=== PATIENT | male | born 1950 | race Asian ===

== ENCOUNTER 2022-08-07 02:49 | Inpatient (IN) | payer MEDICAID, MEDICARE ==
[~2022-08-07] VITALS: Ht 167.6 cm; Wt 76.2 kg
[2022-08-07] VITALS (9 sets, daily range): BP systolic 83–135; BP diastolic 50–97
--- NOTE | 2022-08-07 02:51 | NUR ---
YO ALS TO BED #7
[2022-08-07] MEDS ORDERED: TRANEXAMIC ACID 1,000 MG in NACL 0.9% 50 ML IV STA (02:56)
[2022-08-07] MEDS ORDERED: OCTREOTIDE ACETATE 1.25 MG in NACL 0.9% 250 ML IV SCH ×2 (03:00→10:00)
[2022-08-07] MEDS ORDERED: PANTOPRAZOLE 80 MG in NACL 0.9% 100 ML IVP ONE (03:00)
--- NOTE | 2022-08-07 03:00 | NUR ---
PT MANUELA'Kinsey IN BED 7, PT YO FROM HOME WITH C/O VOMITING OF BLOOD TODAY, INITIALLY HYPOTENSIVE 59/40, HE WAS GIVEN NS 300MLS,BP 114/74, BS 150 MG/DL, NSR, SAO2 100% KNA
[2022-08-07] MEDS ORDERED: PANTOPRAZOLE 40 MG INJ VIAL ONE (03:10)
[2022-08-07] MEDS ORDERED: TRANEXAMIC ACID 1,000 MG/10 ML VIAL ONE (03:10)
[2022-08-07] MEDS ORDERED: OCTREOTIDE ACETATE 1000 MCG/5 ML VIAL ONE (03:18)
[2022-08-07] MEDS ORDERED: OCTREOTIDE ACETATE 1.25 MG in NACL 0.9% 250 ML IV ONE (03:20)
--- NOTE | 2022-08-07 03:35 | NUR ---
SECOND IV STARTED, 20G KURTIST AC.
[2022-08-07 04:10] LABS: BASOPHILS % (AUTO) 0.3 % (0.0-2.0); EOSINOPHILS % (AUTO) 0.3 % (0.0-4.0); HEMATOCRIT 22.8 % (36-52); HEMOGLOBIN 7.7 g/dL (12.0-18.0); LYMPHOCYTES # (AUTO) 0.3 K/uL (2.0-11.5); LYMPHOCYTES % (AUTO) 4.7 % (20.5-51.1); MEAN CORPUSCULAR HEMOGLOBIN 30 pg (27-31); MEAN CORPUSCULAR HGB CONC 34 g/dL (33-37); MEAN CORPUSCULAR VOLUME 89.3 fL (80-94); MONOCYTES # (AUTO) 0.5 K/uL (0.8-1.0); MONOCYTES % (AUTO) 7.4 % (1.7-9.3); NEUTROPHILS # (AUTO) 6.2 K/uL (1.8-7.7); PLATELET COUNT (AUTO) 115 K/uL (140-450); RED BLOOD CELL COUNT(AUTO) 2.56 MIL/uL (4.20-6.10); RED CELL DISTRIBUTION WIDTH 15.1 % (11.6-13.7); WHITE BLOOD COUNT (AUTO) 7.2 K/uL (4.8-10.8)
[2022-08-07 04:23] LABS: NEUTROPHILS % (AUTO) 87.3 % (42.2-75.2)
[2022-08-07 04:24] LABS: ALBUMIN 1.9 g/dL (3.4-5.0); ANION GAP 14.7 (8-16); ASPARTATE AMINOTRANSFERASE 54 U/L (15-37); CARBON DIOXIDE 23.2 mmol/L (21-32); CHLORIDE 108 mmol/L (98-107); CREATININE 1.4 mg/dL (0.6-1.3); GLUCOSE 134 mg/dL (74-106); POTASSIUM 4.9 mmol/L (3.5-5.1); SODIUM SERUM 141 mmol/L (136-145); TOTAL BILIRUBIN 0.5 mg/dL (0.0-1.0); UREA NITROGEN, BLOOD 49 mg/dL (7-18)
[2022-08-07 04:35] LABS: PROTHROMBIN TIME 12.8 secs (10.8-13.4)
--- NOTE | 2022-08-07 04:50 | NUR ---
PT TAKEN TO CT.
--- NOTE | 2022-08-07 05:16 | NUR ---
PT RETURNED FROM CT, WHILE RN HOOKED PT BACK UP TO THE IV PT BEGAN TO VOMIT UP BLOOD. APPROX 200 MLS WORTH
--- NOTE | 2022-08-07 05:30 | NUR ---
PT HAD LARGE AMOUNT HEMATEMESIS
[2022-08-07] MEDS ORDERED: NOREPINEPHRINE 4 MG in DEXTROSE 5% 250 ML IV ONE (05:45)
--- NOTE | 2022-08-07 05:49 | NUR ---
PRBC'S BEGUN AT THIS TIME
--- NOTE | 2022-08-07 05:58 | NUR ---
RT CALLED FOR INTUBATION
[2022-08-07] MEDS ORDERED: NOREPINEPHRINE 4 MG/4 ML VIAL IV ONE (06:01)
[2022-08-07] MEDS ORDERED: INTUBATION KIT MC ONE (06:02)
--- NOTE | 2022-08-07 06:05 | NUR ---
PT INTUBATED AND ATTACHED TO VENT. A/C 16 VT 450 PEEP 5 CM FIO2 100%. INTUBATED 7.5, 21CM TO TEETH
--- NOTE | 2022-08-07 06:23 | NUR ---
RN PLACED OG TUBE IN PT. PLACEMENT VERIFIED BY XRAY.
[2022-08-07] MEDS ORDERED: PROPOFOL 1000 MG/100 ML PREMIX 100 ML IV ONE ×3 (06:33→10:59)
--- NOTE | 2022-08-07 06:54 | NUR ---
SECOND UNIT OF PRBC'S HUNG AND STARTED.
--- NOTE | 2022-08-07 06:59 | NUR ---
PT IN BED INTUBATED, WTIH PROPOFOL, PRBC'S, SANDOSTATIN, LEVOPHED, PROTONIX ALL INFUSING. PT HAS A VASQUEZ IN PLACE, DRAINING, YELLOW COLORED URINE. OG TUBE IN PLACE. Addendum: 08/07/22 at 0703 by [email or web address] PT IN BED INTUBATED, WTIH PROPOFOL, PRBC'S, SANDOSTATIN, LEVOPHED, PROTONIX ALL INFUSING. PT HAS A VASQUEZ IN PLACE, DRAINING, YELLOW COLORED URINE. OG TUBE IN PLACE. PT ON PLANT INSPECTOR, NSR.
--- NOTE | 2022-08-07 07:22 | NUR ---
REPORT GIVEN TO HARESH GARCIA.
[2022-08-07] MEDS ORDERED: VASOPRESSIN 20 UNITS/ML VIAL ONE (07:28)
[2022-08-07] MEDS ORDERED: VASOPRESSIN 20 UNITS in NACL 0.9% 250 ML IV SCH (07:30)
--- NOTE | 2022-08-07 08:00 | NUR ---
received patient from AM shift. patient on vent with settings as ordered. Blood transfusion ongoing, BP was low 71/37. on levophed drip @ 8mcg/kg/min titrated per protocol, propofol @ 15 mcg titrated per protocol. started on vasopressin per protocol. BP increased to 147/78 after vasopressin started. Will titrate ordered drips per protocol. V/S stable at this time, will continue to monitor closely.
[2022-08-07] MEDS ORDERED: cefTRIAXone 1,000 MG VIAL ONE (08:30)
[2022-08-07] MEDS ORDERED: DEXMEDETOMIDINE HCL 400 MCG in NACL 0.9% 96 ML IV STA (08:31)
[2022-08-07] MEDS ORDERED: fentaNYL citrate 0.05 MG/ML VIAL ONE (09:03)
[2022-08-07] MEDS ORDERED: MIDAZOLAM 2 MG/2 ML VIAL ONE (09:03)
[2022-08-07] MEDS ORDERED: ONDANSETRON 4 MG/2 ML VIAL IM/IVP PRN (09:35)
[2022-08-07] MEDS: DEXT 5% /NACL 0.9% 1,000 ML IV SCH ×2 (09:35→17:00)
[2022-08-07] MEDS ORDERED: HYDROcodone/APAP 7.5/325 MG 1 TAB PO PRN (09:35)
[2022-08-07] MEDS ORDERED: guaiFENesin DM 200/20 MG-10 ML 10 ML UDC PO PRN (09:35)
[2022-08-07] MEDS ORDERED: ACETAMINOPHEN 325 MG TAB PO PRN (09:35)
[2022-08-07] MEDS ORDERED: ZOLPIDEM 5 MG TAB PO PRN (09:35)
[2022-08-07] MEDS ORDERED: DOCUSATE 100 MG/10 ML UDC PO PRN (09:45)
[2022-08-07] MEDS ORDERED: POTASSIUM CHLORIDE 20% 40 MEQ/15 ML UDC PO PRN (09:45)
--- NOTE | 2022-08-07 10:24 | NUR ---
OR TEAM AT BEDSIDE
--- NOTE | 2022-08-07 10:30 | NUR ---
Endoscopy started at the bedside by Dr. Corbett with OR team.
--- NOTE | 2022-08-07 10:50 | NUR ---
EGD procedure completed. V/S Stable.
[2022-08-07] MEDS: PROPOFOL 1000 MG/100 ML PREMIX 100 ML IV PRN ×2 (11:25→21:44)
[2022-08-07 11:33] LABS: PROTHROMBIN TIME 13.4 secs (10.8-13.4)
[2022-08-07] MEDS ORDERED: TENO300T7 PO (11:40)
[2022-08-07] MEDS ORDERED: OMEP40EC23 PO (11:40)
[2022-08-07 11:47] LABS: CHOL/HDL RATIO 3.9 (1-4.5); MAGNESIUM 1.8 mg/dL (1.8-2.4); THYROID STIMULATING HORMONE 0.87 uIU/mL (0.34-3.74)
[2022-08-07 11:50] LABS: BASOPHILS % (AUTO) 0.2 % (0.0-2.0); EOSINOPHILS % (AUTO) 0.1 % (0.0-4.0); HEMATOCRIT 36.6 % (36-52); HEMOGLOBIN 12.1 g/dL (12.0-18.0); LYMPHOCYTES # (AUTO) 0.7 K/uL (2.0-11.5); MEAN CORPUSCULAR HEMOGLOBIN 28 pg (27-31); MEAN CORPUSCULAR HGB CONC 33 g/dL (33-37); MEAN CORPUSCULAR VOLUME 85.7 fL (80-94); MONOCYTES # (AUTO) 1.9 K/uL (0.8-1.0); NEUTROPHILS # (AUTO) 9.7 K/uL (1.8-7.7); PLATELET COUNT (AUTO) 106 K/uL (140-450); RED BLOOD CELL COUNT(AUTO) 4.27 MIL/uL (4.20-6.10); RED CELL DISTRIBUTION WIDTH 17.7 % (11.6-13.7); WHITE BLOOD COUNT (AUTO) 12.3 K/uL (4.8-10.8)
[2022-08-07] MEDS ORDERED: DEXMEDETOMIDINE HCL 400 MCG in NACL 0.9% 96 ML IV PRN (12:00)
[2022-08-07 12:39] LABS: LYMPHOCYTES % (AUTO) 5.8 % (20.5-51.1); MONOCYTES % (AUTO) 15.5 % (1.7-9.3); NEUTROPHILS % (AUTO) 78.4 % (42.2-75.2)
--- NOTE | 2022-08-07 14:00 | NUR ---
PULMUNOLOGIST AT BEDSIDE TO EVALUATE THE PATIENT.
--- NOTE | 2022-08-07 15:04 | NUR ---
FAMILY AT BEDSIDE. PATIENT V/S REMAINS STABLE AT THIS TIME.
[2022-08-07] MEDS: NOREPINEPHRINE 8 MG in DEXTROSE 5% 250 ML IV PRN (16:38)
--- NOTE | 2022-08-07 16:55 | NUR ---
TRANSFERRED PT FROM ER TO ICU BED 5. CURRENT VENT SETTING ARE ACVC 450,F20, +5, 40%. VENT WHEELS ARE LOCKED, PLUGGED INTO RED OUTLET, AMBUBAG AT BEDSIDE, ALARMS ARE SET AND AUDIBLE. CLEAR/ DIMINISHED BREATH SOUNDS, SATURATION 100%. WILL CONTINUE TO MONITOR.
[2022-08-07] MEDS ORDERED: OCTREOTIDE ACETATE IV SCH (17:00)
[2022-08-07] MEDS ORDERED: NACL 0.9% IV SCH (17:00)
--- NOTE | 2022-08-07 17:11 | NUR ---
Patient will be admitted to care of DR. GARCES. Admited to ICU . Will go to room 5. Belongings list completed. Report to TORRIE GARCIA.
--- NOTE | 2022-08-07 17:50 | NUR ---
RECIEVED BEDSIDE REPORT FROM ER NURSE. PATIENT STABLE AT THIS TIME.
--- NOTE | 2022-08-07 19:26 | NUR ---
Assumed pt care bedside report recived from Daksha GARCIA, pt is sedated on PROPOFOL unable to follow command, intubated ETT to ventilator FIO2 45% rate 20 Peep 5 TV 450 tolerating well O2 96% oral care done airway suction via ETT, SR on the monitor blood pressure WNL ongoing Levophed drip NPO hydration with IV fluids, pt education on care plan no evidence of learning defer till family visit time, restraints applied for safety as pt attempted to pull ETT close monitoring and support at beside, will continue to monitor and treat as per care plan.
--- NOTE | 2022-08-07 19:30 | NUR ---
BEDSIDE REPORT GIVEN TO VALERIE GARCIA. PATIENT IS STABLE AT THIS TIME.
--- NOTE | 2022-08-07 20:45 | NUR ---
Propofol turned off for pt's neuro assessment,became drowsy as at this time pt's son visiting at the bedside pt follows command eyes open moves all extremities. Pt's son was able to serv as claim adjuster for the assessment, face time updates with pt's and other family members. Patient nods appropriately to anser questions and family wre glad and verbalized appreciation for the care and treatments pt is receiving at this hospital.
[2022-08-08] VITALS (32 sets, daily range): BP systolic 83–127; BP diastolic 55–86
[2022-08-08 01:17] LABS: BASOPHILS % (AUTO) 0.2 % (0.0-2.0); EOSINOPHILS # (AUTO) 0.2 K/uL (0-0.4); EOSINOPHILS % (AUTO) 1.9 % (0.0-4.0); HEMATOCRIT 31.2 % (36-52); HEMOGLOBIN 10.8 g/dL (12.0-18.0); LYMPHOCYTES # (AUTO) 0.4 K/uL (2.0-11.5); LYMPHOCYTES % (AUTO) 3.8 % (20.5-51.1); MEAN CORPUSCULAR HEMOGLOBIN 29 pg (27-31); MEAN CORPUSCULAR HGB CONC 34 g/dL (33-37); MEAN CORPUSCULAR VOLUME 84.8 fL (80-94); MONOCYTES # (AUTO) 1.2 K/uL (0.8-1.0); MONOCYTES % (AUTO) 11.4 % (1.7-9.3); NEUTROPHILS # (AUTO) 8.8 K/uL (1.8-7.7); NEUTROPHILS % (AUTO) 82.7 % (42.2-75.2); PLATELET COUNT (AUTO) 67 K/uL (140-450); RED BLOOD CELL COUNT(AUTO) 3.68 MIL/uL (4.20-6.10); RED CELL DISTRIBUTION WIDTH 18.5 % (11.6-13.7); WHITE BLOOD COUNT (AUTO) 10.6 K/uL (4.8-10.8)
[2022-08-08] MEDS: DEXT 5% /NACL 0.9% 1,000 ML IV SCH ×3 (03:22→10:30)
[2022-08-08 03:32] LABS: APPEARANCE,URINE CLEAR (CLEAR); BILIRUBIN,URINE NEGATIVE (NEGATIVE); BLOOD, URINE TRACE-I (NEGATIVE); COLOR,URINE YELLOW (YELLOW); LEUKOCYTE ESTERASE ,URINE TRACE (NEGATIVE); NITRITE, URINE POSITIVE (NEGATIVE); UGLUCOSE NEGATIVE (NEGATIVE)
[2022-08-08 03:36] LABS: RBC,URINE 11-20 (MOD) /HPF (0-5)
[2022-08-08 03:37] LABS: WBC,URINE 0-5 /HPF (0-5)
[2022-08-08 03:49] LABS: BARBITURATE, URINE NEGATIVE ng/ml (NEG <=200); BENZODIAZEPINE, URINE NEGATIVE ng/mL (NEG <=200); CANNABINOID, URINE NEGATIVE ng/mL (NEG <=50); COCAINE, URINE NEGATIVE ng/mL (NEG <=300); OPIATE, URINE NEGATIVE ng/mL (NEG <=2000); PHENCYCLIDINE SCREEN,URINE NEGATIVE ng/mL (NEG <=25)
[2022-08-08 04:21] LABS: ANION GAP 8.6 (8-16); CHLORIDE 115 mmol/L (98-107); CREATININE 1.1 mg/dL (0.6-1.3); GLUCOSE 149 mg/dL (74-106); POTASSIUM 4.6 mmol/L (3.5-5.1); SODIUM SERUM 142 mmol/L (136-145); UREA NITROGEN, BLOOD 40 mg/dL (7-18)
[2022-08-08 04:40] LABS: BASOPHILS # (AUTO) 0.1 K/uL (0.00-0.22); BASOPHILS % (AUTO) 0.5 % (0.0-2.0); EOSINOPHILS # (AUTO) 0.3 K/uL (0-0.4); EOSINOPHILS % (AUTO) 2.5 % (0.0-4.0); HEMATOCRIT 30.6 % (36-52); HEMOGLOBIN 10.6 g/dL (12.0-18.0); LYMPHOCYTES # (AUTO) 0.5 K/uL (2.0-11.5); LYMPHOCYTES % (AUTO) 4.4 % (20.5-51.1); MEAN CORPUSCULAR HEMOGLOBIN 29 pg (27-31); MEAN CORPUSCULAR HGB CONC 35 g/dL (33-37); MEAN CORPUSCULAR VOLUME 84.4 fL (80-94); MONOCYTES # (AUTO) 1.2 K/uL (0.8-1.0); MONOCYTES % (AUTO) 11.7 % (1.7-9.3); NEUTROPHILS # (AUTO) 8.6 K/uL (1.8-7.7); NEUTROPHILS % (AUTO) 80.9 % (42.2-75.2); PLATELET COUNT (AUTO) 85 K/uL (140-450); RED BLOOD CELL COUNT(AUTO) 3.62 MIL/uL (4.20-6.10); RED CELL DISTRIBUTION WIDTH 18.5 % (11.6-13.7); WHITE BLOOD COUNT (AUTO) 10.7 K/uL (4.8-10.8)
[2022-08-08] MEDS: PROPOFOL 1000 MG/100 ML PREMIX 100 ML IV PRN ×3 (05:48→22:56)
--- NOTE | 2022-08-08 07:22 | NUR ---
Bedside report given to Caterina GARCIA, as at this time pt's vitals signs stable no sign of distress restful in bed no changes in pt"s condition and care plan
--- NOTE | 2022-08-08 08:05 | NUR ---
received report from the night nurse, pt stable in vent, pt follow command, the drip is maintained.[email or web address]
[2022-08-08 08:09] LABS: T4 (THYROXINE) 4.8 ug/dL (4.5-12.0)
[2022-08-08] MEDS: PANTOPRAZOLE 40 MG INJ VIAL IVP SCH (09:09)
--- NOTE | 2022-08-08 09:10 | NUR ---
positioned the patient, the son in bed side, pt follow the command, and moves all extremities in soft restraints c/o pulling the lines.[email or web address]
--- NOTE | 2022-08-08 09:17 | NUR ---
PATIENT HAS BEEN SCREENED AND CATEGORIZED HIGH NUTRITION RISK. PATIENT WILL BE SEEN WITHIN 1-2 DAYS OF ADMISSION. [facility]NS REFERRAL RECEIVED FOR INTUBATED PATIENT ON 08/08/22. REVIEWED BY ROBERT MORIN RD
--- NOTE | 2022-08-08 11:42 | NUR ---
PT. WITH LOW SHANIQUE SCALE AT MODERATE TO HIGH RISK, CONTINUE TO FOLLOW PRESSURE INJURY PREVENTION INTERVENTIONS. -POSITIONING: TURN AND REPOSITION PATIENT Q 2H OR SOONER USE PILLOWS TO KEEP BONY PROMINENCES FROM DIRECT CONTACT WITH SURFACES USE REPOSITIONING WEDGES TO PROVIDE 30-DEGREE ANGLE FOR SIDE LYING POSITIONS OFFLOADING OR FOAM DRESSING TO ALL TUBING TO PREVENT MEDICAL DEVICES RELATED PRESSURE INJURY -RE-EVALUATING AND MANAGING INCONTINENCE MONITOR SKIN CONDITION DURING POSITION CHANGE DO NOT MASSAGE REDNESS, BONY PROMINENCES FREQUENT DANIEL-CARE AND PROVIDE BARRIER CREAMS PRN IF SOILING MOISTURE CONTROL BY OFFER BED DARNELL/URINAL /ABSORBENT PAD TO WICK AND HOLD MOISTURE KEEP SKIN DRY AND PROTECT FROM FRICTION -MANAGE FRICTION/SHEAR/MOBILITY KEEP HOB AT THE LOWEST LEVEL OF ELEVATION NO MORE THAN 30 DEGREE UNLESS OTHERWISE CONTRAINDICATED USE LIFT SHEET OR TRANSFER DEVICE TO MOVE PATIENT AND PREVENT LATERAL SHEER. PROTECT HEELS, ELBOWS BONY PROMINENCES WITH SKIN BERRIES OR FOAM DRESSING IF EXPOSED TO FRICTION OFFLOAD BILATERAL HEELS BY PLACING PILLOWS UNDER CALVES AT ALL TIMES, UNLESS OTHERWISE CONTRAINDICATED -PRESSURE REDISTRIBUTION SURFACE THERAPY HELENA ISOFLEX MATTRESS -NUTRITION: PLEASE FOLLOW RD RECOMMENDATIONS AND OFFER NUTRITION SUPPLEMENTS IF ORDERED. PLEASE CONTACT WOUND CARE NURSE FOR ANY QUESTION AND CHANGE OF WOUND CONDITION.
--- NOTE | 2022-08-08 12:09 | NUR ---
pt restless increased the propofol to 25mcg [email or web address]
--- NOTE | 2022-08-08 13:15 | NUR ---
INCREASED LEVOPHED AGAIN FOR LOW BP.[email or web address]
--- NOTE | 2022-08-08 14:44 | NUR ---
PT IS RESTING AFTER POSITIONING FOR COMFORT,BP 134/81, [email or web address]
--- NOTE | 2022-08-08 15:29 | NUR ---
PT HAS FAMILY MEMBERS AT BED SIDE, POSITIONED FOR COMFORT.[email or web address]
--- NOTE | 2022-08-08 15:57 | NUR ---
08/08/22 RD INITIAL ASSESSMENT COMPLETED PLEASE REFER TO NUTRITION ASSESSMENT UNDER CARE ACTIVITY FOR ESTIMATED NUTRITIONAL NEEDS. 1. MONITOR NPO STATUS 2. WHEN/IF MEDICALLY APPROPRIATE, RECOMMEND REGULAR DIET WITH TEXTURE MODIFICATION PER ST SWALLOW EVAL RECOMMENDATIONS. 3. WHEN/IF MEDICALLY APPROPRIATE TO START TF, RECOMMEND VITAL AF 1.2 AT GOAL RATE 65 ML/HR, FWF 150 ML Q6H TOLERATED OR PER MD -WITH CURRENT PROPOFOL RATE, PROVIDES 1560 ML TOTAL VOLUME, 2085 KCAL, 117 GM PROTEIN AND 1865 ML FREE WATER DAILY MEETING 96% ESTIMATED KCAL NEEDS AND 100% ESTIMATED PROTEIN NEEDS; ADEQUATE - START TF AT 1O ML/HR INCREASE BY 1O ML Q4H UNTIL GOAL IS REACHED TOLERATED 4. MONITOR GI SYMPTOMS, GASTRIC RESIDUALS AND NUTRITION RELATED LAB VALUES 5. CONSULT RD PRN 6. RD TO FOLLOW-UP 2-3 DAYS, HIGH RISK REVIEWED BY ROBERT MORIN RD
--- NOTE | 2022-08-08 17:19 | NUR ---
PT RESTING THE VENT SETTING DID NOT CHANGE, IV INFUSING ORDERED NO VISITOR AT BED SIDE.[email or web address]
[2022-08-08] MEDS: NOREPINEPHRINE 8 MG in DEXTROSE 5% 250 ML IV PRN (17:52)
--- NOTE | 2022-08-08 18:18 | NUR ---
PT RESTING THE IV MED AND FLUID MAINTAINED ORDERED,FIO2 25% WITH RATE OF 20 SETTING.THE VASQUEZ CATH IS DRAINING YELLOW CLEAR URINE,NO BM ON THIS SHIFT.[email or web address]
--- NOTE | 2022-08-08 19:18 | NUR ---
GAVE REPORT TO THE NIGHT NURSE.PT CONTINUE TO REST WITH DRIP INFUSING ORDERED.[email or web address]
--- NOTE | 2022-08-08 20:00 | NUR ---
Pt. was anxious and triggering vent , so up with Profopol up to 45 mcg/kg/min
--- NOTE | 2022-08-08 21:47 | NUR ---
at 2100 pt was triggering vent with high peak, suctioned endoctracheally obtaining a n old bloody freks and lavaged with cold N. saline
[2022-08-09] VITALS (28 sets, daily range): BP systolic 75–129; BP diastolic 55–78
[2022-08-09] MEDS: DEXT 5% /NACL 0.9% 1,000 ML IV SCH ×5 (00:57→20:41)
[2022-08-09] MEDS: PROPOFOL 1000 MG/100 ML PREMIX 100 ML IV PRN ×3 (04:57→20:31)
[2022-08-09 06:52] LABS: BASOPHILS # (AUTO) 0.1 K/uL (0.00-0.22); BASOPHILS % (AUTO) 0.8 % (0.0-2.0); EOSINOPHILS # (AUTO) 0.4 K/uL (0-0.4); EOSINOPHILS % (AUTO) 4.7 % (0.0-4.0); HEMATOCRIT 28.5 % (36-52); HEMOGLOBIN 9.8 g/dL (12.0-18.0); LYMPHOCYTES # (AUTO) 0.4 K/uL (2.0-11.5); LYMPHOCYTES % (AUTO) 4.4 % (20.5-51.1); MEAN CORPUSCULAR HEMOGLOBIN 29 pg (27-31); MEAN CORPUSCULAR HGB CONC 34 g/dL (33-37); MEAN CORPUSCULAR VOLUME 85.3 fL (80-94); MONOCYTES # (AUTO) 1.1 K/uL (0.8-1.0); MONOCYTES % (AUTO) 11.5 % (1.7-9.3); NEUTROPHILS # (AUTO) 7.3 K/uL (1.8-7.7); NEUTROPHILS % (AUTO) 78.6 % (42.2-75.2); PLATELET COUNT (AUTO) 86 K/uL (140-450); RED BLOOD CELL COUNT(AUTO) 3.34 MIL/uL (4.20-6.10); RED CELL DISTRIBUTION WIDTH 18.7 % (11.6-13.7); WHITE BLOOD COUNT (AUTO) 9.3 K/uL (4.8-10.8)
[2022-08-09 07:13] LABS: ANION GAP 9.2 (8-16); CARBON DIOXIDE 21.6 mmol/L (21-32); CHLORIDE 118 mmol/L (98-107); GLUCOSE 145 mg/dL (74-106); POTASSIUM 3.8 mmol/L (3.5-5.1); SODIUM SERUM 145 mmol/L (136-145); UREA NITROGEN, BLOOD 21 mg/dL (7-18)
--- NOTE | 2022-08-09 07:22 | NUR ---
RECEIVED REPORT FROM MAYNOR GARCIA. PATIENT IS STABLE AT THIS TIME. SEDATED ON PROPOFOL 40MCG/KG/MIN, LEVOPHED AT 5MCG/MIN, D5NS RUNNING AT 135ML/HR VIA SUBCLAVIAN TRIPLE LUMEN CATH. SUBCLAVIAN CENTRAL LINE APPEARS WNL, NO S/S OF INFECTION, DRESSING IS CDI. IV SITE TO LEFT AC FLUSHES. IV SITE TO R FA FLUSHES WELL, IV SITE TO THE RIGHT AC FLUSHES WELL. S1 AND S2 AUSCULTATED, CAP REFILL <3 SEC. PULSES +2 BUE/BLE. ETT TO VENT AT AC VC 25%, 450, 20, 5. LUNGS CLEAR WITH AUSCULTATION. ABD IS SOFT AND ROUND, NO TENDERNESS PALPATED. BOWEL SOUNDS HYPOACTIVE. NO BM AT THIS TIME. F/C TO GRAVITY DRAINING YELLOW URINE. ABLE TO MOVE EXTREMITIES. RESTRAINTS TO BUE, NO S/S OF INJURY. WILL CONTINUE TO MONITOR.
[2022-08-09] MEDS: PANTOPRAZOLE 40 MG INJ VIAL IVP SCH (08:15)
[2022-08-09] MEDS ORDERED: DEXMEDETOMIDINE HCL 400 MCG in NACL 0.9% 96 ML IV PRN (09:35)
--- NOTE | 2022-08-09 10:22 | NUR ---
DR. HERNANDEZ HERE TO SEE PATIENT. PER MD CONTINUE WITH SEDATION VACTION AND BEGIN CPAP TRIAL. RT NOTIFIED AT BS. PATIENT HAS BEEN TOLERATING DECREASE IN SEDATION SO FAR.
--- NOTE | 2022-08-09 13:05 | NUR ---
PATIENT CURRENTLY UNDERGOING CPAP TRIAL. PROPOFOL AND LEVOPHED ON HOLD CURRENTLY. BLOOD PRESSURE 106/65, HR 81. PATIENT'S SON AT BS. PATIENT FOLLOWS COMMANDS AND COMPREHEND'S SON AND NURSE WHEN SPOKEN TO. PERRLA 3MM. PATIENT IS RELAXING IN BED AT THIS TIME. NO SIGNS OF ACUTE DISTRESS WILL CONTINUE TO MONITOR.
--- NOTE | 2022-08-09 14:00 | NUR ---
CPAP TRIAL ENDED DT INCREASED RESPIRATORY RATE. RT AWARE. PATIENT PLACED BACK ON VENT SETTINGS 25% FIO2, 450, 22, 5. OXYGENATING AT 96%. PROPOFOL RESUMED PER PROTOCOL. WILL CONTINUE TO MONITOR. Addendum: 08/09/22 at 1652 by TORRIE DOW RN BP AND HR STABLE WITHOUT LEVOPHED DRIP.
--- NOTE | 2022-08-09 16:18 | NUR ---
DC PLANNING ADMITTED A 72 YEAR OLD PATIENT FOR GI BLEED AND HYPOVOLEMIC SHOCK.HAS HX OF LIVER CANCER UNDERGOING RADIATION THERAPY,COPD, HEPATITIS B CARRIER .HGB 7.7 ON ADMISSION. EMERGENCY BANDING WAS DONE.RECEIVED 3 UNITS OF BLOOD TRANSFUSION .LATEST HGB STABLE 9.8.INTUBATED AND FOR DAILY CPAP TRIALS. OFF SEDATION AND ANTIBIOTIC.GI,NEPRO ,PULMO FOLLOWING.DC PLAN PENDING PATIENT'S RESPONSE TO TX.CM TO FOLLOW.
--- NOTE | 2022-08-09 16:48 | NUR ---
OPTIFOAM APPLIED, SKIN TO BUTTOCKS IS CLEAR, DRY, AND INTACT. D/C 20G TO LEFT AC DT LEAKING WITH FLUSH. IV CATHETER INTACT. PRESSURE APPLIED, PRESSURE DRESSING IN PLACE.
--- NOTE | 2022-08-09 17:57 | NUR ---
PT'S DAUGHTER IN LAW, QUYAN HERE AT BS ASKING ABOUT FATHER'S POC. [employer] USED DT PATIENT'S FAMILY SPEAKING CANTONESE ONLY. BACK DIGGER OPERATOR ALVIN IGLESIAS #[id number] TRANSLATED ALL QUESTIONS AND ANSWERS. ALL QUESTIONS ANSWERED AT THIS TIME.
--- NOTE | 2022-08-09 19:20 | NUR ---
BEDSIDE REPORT GIVEN TO MAYNOR GARCIA. PATIENT IS STABLE AT THIS TIME.
[2022-08-10] VITALS (27 sets, daily range): BP systolic 99–155; BP diastolic 56–77
[2022-08-10] MEDS: PROPOFOL 1000 MG/100 ML PREMIX 100 ML IV PRN (03:23)
[2022-08-10 06:11] LABS: BASOPHILS % (AUTO) 0.5 % (0.0-2.0); EOSINOPHILS # (AUTO) 0.3 K/uL (0-0.4); EOSINOPHILS % (AUTO) 4.7 % (0.0-4.0); HEMATOCRIT 26.8 % (36-52); LYMPHOCYTES # (AUTO) 0.4 K/uL (2.0-11.5); LYMPHOCYTES % (AUTO) 6.1 % (20.5-51.1); MEAN CORPUSCULAR HEMOGLOBIN 29 pg (27-31); MEAN CORPUSCULAR HGB CONC 34 g/dL (33-37); MEAN CORPUSCULAR VOLUME 86.5 fL (80-94); MONOCYTES # (AUTO) 0.8 K/uL (0.8-1.0); MONOCYTES % (AUTO) 11.6 % (1.7-9.3); NEUTROPHILS # (AUTO) 5.1 K/uL (1.8-7.7); NEUTROPHILS % (AUTO) 77.1 % (42.2-75.2); PLATELET COUNT (AUTO) 82 K/uL (140-450); WHITE BLOOD COUNT (AUTO) 6.6 K/uL (4.8-10.8)
[2022-08-10 06:15] LABS: ANION GAP 11.3 (8-16); CARBON DIOXIDE 21.3 mmol/L (21-32); CHLORIDE 119 mmol/L (98-107); GLUCOSE 146 mg/dL (74-106); POTASSIUM 3.6 mmol/L (3.5-5.1); SODIUM SERUM 148 mmol/L (136-145); UREA NITROGEN, BLOOD 15 mg/dL (7-18)
--- NOTE | 2022-08-10 07:00 | NUR ---
RECEIVED PT ACVC 450,F20,+5,25%. WHEELS ARE LOCKED, PLUGGED INTO RED OUTLET, AMBUBAG AT BEDSIDE, ALARMS ARE SET AUDIBLE. BREATH SOUNDS WERE CLEAR AND DIMINISHED ON THE LEFT. SATURATION 98%. WILL CONTINUE TO MONITOR.
--- NOTE | 2022-08-10 07:30 | NUR ---
RECEIVED PT IN BED INTUBATED 7.10/05 LIP. TOLERATING VENT SETTINGS WELL. 98% SATURATION. IJ NOTE INFUSING LEVOPHED AND PROPOFOL PER PROTOCOL. FC DRAINING TO GRAVITY. BILATERAL SOFT WRIST RESTRAINTS INTACT. NAD. SAFETY MAINTAINED.
[2022-08-10] MEDS: DEXT 5% /NACL 0.9% 1,000 ML IV SCH ×3 (08:30→19:43)
--- NOTE | 2022-08-10 09:00 | NUR ---
PT RESTING IN BED TOLERATING VENT SETTINGS. NAD. SAFETY MAINTAINED.
[2022-08-10] MEDS: PANTOPRAZOLE 40 MG INJ VIAL IVP SCH (09:58)
--- NOTE | 2022-08-10 10:20 | NUR ---
SEDATION VACATION INITIATED FOR PT. RT AT BEDSIDE. PT TOLERATING WELL. WILL CONTINUE TO MONITOR.
--- NOTE | 2022-08-10 10:25 | NUR ---
CPAP TRIAL STARTED 25/09.
--- NOTE | 2022-08-10 12:54 | NUR ---
PT EXTUBATED BY RT PT TOLERATING WELL. ON NC 3L SATURATION 97%.
--- NOTE | 2022-08-10 12:57 | NUR ---
EXTUBATED PT. CURRENTLY ON 3L NASAL CANNULA. SATURATION 97%. RESPIRATORY RATE 18-20. BLOOD PRESSURE WITHIN NORMAL RANGE. HEART RATE 85-90. WILL CONTINUE TO MONITOR.
--- NOTE | 2022-08-10 13:28 | NUR ---
REPLACED NASAL CANNULA WITH A CURAPLEX NASAL CANNULA AND HUMIDIFIER FOR PT COMFORT. WILL CONTINUE TO MONITOR.
--- NOTE | 2022-08-10 13:51 | NUR ---
PT TOLERATING NC 3L NC SATURATION 98%. BREATHING UNLABORED. NAD. SAFETY MAINTAINED.
--- NOTE | 2022-08-10 14:50 | NUR ---
CALLED SPEECH THERAPY FOR SWALLOW EVAL S/P EXTUBATION
--- NOTE | 2022-08-10 14:50 | NUR ---
DR HERNANDEZ AT BEDSIDE FOR EVAL
--- NOTE | 2022-08-10 16:30 | NUR ---
SEEN BY ST, RECOMMENDED PUREE, NECTAR THICK LIQUIDS DIET
--- NOTE | 2022-08-10 17:25 | NUR ---
VASQUEZ CARE AND ORAL CARE DONE. ABSORBENT PAD AND LINEN CHANGED. TURNED AND REPOSITIONED
[2022-08-11] VITALS (12 sets, daily range): BP systolic 99–150; BP diastolic 55–83
[2022-08-11 05:46] LABS: BASOPHILS % (AUTO) 0.7 % (0.0-2.0); EOSINOPHILS # (AUTO) 0.3 K/uL (0-0.4); EOSINOPHILS % (AUTO) 5.9 % (0.0-4.0); HEMOGLOBIN 8.5 g/dL (12.0-18.0); LYMPHOCYTES # (AUTO) 0.4 K/uL (2.0-11.5); LYMPHOCYTES % (AUTO) 8.3 % (20.5-51.1); MEAN CORPUSCULAR HEMOGLOBIN 29 pg (27-31); MEAN CORPUSCULAR HGB CONC 34 g/dL (33-37); MEAN CORPUSCULAR VOLUME 86.4 fL (80-94); MONOCYTES # (AUTO) 0.5 K/uL (0.8-1.0); MONOCYTES % (AUTO) 12.6 % (1.7-9.3); NEUTROPHILS # (AUTO) 3.1 K/uL (1.8-7.7); NEUTROPHILS % (AUTO) 72.5 % (42.2-75.2); PLATELET COUNT (AUTO) 69 K/uL (140-450); RED BLOOD CELL COUNT(AUTO) 2.89 MIL/uL (4.20-6.10); RED CELL DISTRIBUTION WIDTH 18.1 % (11.6-13.7); WHITE BLOOD COUNT (AUTO) 4.3 K/uL (4.8-10.8)
[2022-08-11 06:08] LABS: ANION GAP 7.6 (8-16); CARBON DIOXIDE 23.8 mmol/L (21-32); CHLORIDE 119 mmol/L (98-107); GLUCOSE 112 mg/dL (74-106); POTASSIUM 3.4 mmol/L (3.5-5.1); SODIUM SERUM 147 mmol/L (136-145); UREA NITROGEN, BLOOD 16 mg/dL (7-18)
--- NOTE | 2022-08-11 07:02 | NUR ---
RECEIVED PT ON 9L BUBBLE HUMIDIFIER. TITRATED DOWN TO 4L. SATURATION 99%. EQUAL CHEST RISE, NO DISTRESS NOTED. WILL CONTINUE TO MONITOR.
--- NOTE | 2022-08-11 07:30 | NUR ---
Received report from nightman. Pt in bed with HOB elevated. Awake, AOx2-3, follows commands, speaks cantonese. No c/o pain, no SOB on 2L NC. With productive cough producing thick cream colored sputum. With left subclavian TLC running D5NS at 50ml/hr. Dolan catheter intact and draining via gravity, clear yellow urine.
[2022-08-11] MEDS: PANTOPRAZOLE 40 MG INJ VIAL IVP SCH (08:15)
--- NOTE | 2022-08-11 08:30 | NUR ---
ASSISTED WITH BREAKFAST. TOLERATED PUREE DIET WELL
--- NOTE | 2022-08-11 08:40 | NUR ---
SEEN AND EXAMINED BY DR TAVARES. ORDERED TO DOWNGRADE THIS AFTERNOON
--- NOTE | 2022-08-11 14:50 | NUR ---
REPORT GIVEN TO KOREY GARCIA. TRANSFERRED PT TO [facility] RM 107B. PT'S SON IS AWARE OF TRANSFER
--- NOTE | 2022-08-11 15:05 | NUR ---
08/11/22 RD FOLLOW UP COMPLETED PLEASE REFER TO NUTRITION ASSESSMENT UNDER CARE ACTIVITY FOR ESTIMATED NUTRITIONAL NEEDS. 1. CONTINUE PUREE, NECTAR THICK LIQUID DIET PER ST SWALLOW EVAL TOLERATED 2. MONITOR PO INTAKE AND NUTRITION RELATED LAB VALUES 3. RD TO FOLLOW-UP 3-5 DAYS, MODERATE RISK REVIEWED BY ROBERT MORIN RD
[2022-08-11] MEDS: DEXT 5% /NACL 0.9% 1,000 ML IV SCH (15:24)
--- NOTE | 2022-08-11 15:40 | NUR ---
PT TRANSFERRED FROM ICU, REORIENTED TO THE HOSP ENVIRONMENT, ASSESSMENT IS DONE PT GIVEN SUCTION C/O A LOT OF SPUTUM. V.S STABLE TOOK OF THE IV ON THE RIGHT HAND C/O SKIN IS RED. THE SON IS AT BED SIDE.[email or web address]
--- NOTE | 2022-08-11 15:45 | NUR ---
TRANSFERRED PT FROM ICU BED 5 TO ROOM 107B. PT CURRENTLY ON 2L NASAL CANNULA. SATURATION IS 98%. WILL CONTINUE TO MONITOR.
[2022-08-11 16:19] LABS: HEMATOCRIT 29.6 % (36-52); HEMOGLOBIN 9.9 g/dL (12.0-18.0)
--- NOTE | 2022-08-11 18:46 | NUR ---
PT HAD LARGE DARK BM , CHANGED IN BED.[email or web address]
--- NOTE | 2022-08-11 19:10 | NUR ---
GAVE REPORT TO THE NIGHT NURSE, THE SON AT BED SIDE C/O PT DO NOT SPEAK LATVIAN THE SON HELPED WITH ADL QUESTIONS .[email or web address]
--- NOTE | 2022-08-11 19:30 | NUR ---
RECEIVED PATIENT FROM AM NURSE FOR CONTINUITY OF CARE. PT IS STABLE
[2022-08-12] VITALS: BP 128/82
[2022-08-12 04:00] VITALS: BP 130/84
[2022-08-12 07:00] LABS: ANION GAP 9.1 (8-16); CARBON DIOXIDE 21.6 mmol/L (21-32); CHLORIDE 115 mmol/L (98-107); GLUCOSE 118 mg/dL (74-106); POTASSIUM 3.7 mmol/L (3.5-5.1); SODIUM SERUM 142 mmol/L (136-145); UREA NITROGEN, BLOOD 16 mg/dL (7-18)
[2022-08-12 07:01] LABS: BASOPHILS % (AUTO) 0.7 % (0.0-2.0); EOSINOPHILS # (AUTO) 0.4 K/uL (0-0.4); EOSINOPHILS % (AUTO) 8.2 % (0.0-4.0); HEMATOCRIT 26.6 % (36-52); HEMOGLOBIN 9.1 g/dL (12.0-18.0); LYMPHOCYTES # (AUTO) 0.3 K/uL (2.0-11.5); LYMPHOCYTES % (AUTO) 6.5 % (20.5-51.1); MEAN CORPUSCULAR HEMOGLOBIN 30 pg (27-31); MEAN CORPUSCULAR HGB CONC 34 g/dL (33-37); MONOCYTES # (AUTO) 0.8 K/uL (0.8-1.0); MONOCYTES % (AUTO) 16.9 % (1.7-9.3); NEUTROPHILS # (AUTO) 3.3 K/uL (1.8-7.7); NEUTROPHILS % (AUTO) 67.7 % (42.2-75.2); PLATELET COUNT (AUTO) 102 K/uL (140-450); RED BLOOD CELL COUNT(AUTO) 3.09 MIL/uL (4.20-6.10); RED CELL DISTRIBUTION WIDTH 18.3 % (11.6-13.7); WHITE BLOOD COUNT (AUTO) 4.9 K/uL (4.8-10.8)
[2022-08-12] MEDS ORDERED: ALBUTEROL 0.083% 2.5 MG/3 ML NEBU INH PRN (07:15)
[2022-08-12] MEDS ORDERED: IPRATROPIUM 0.02% 0.5 MG/2.5 ML NEBU INH ONE (07:20)
[2022-08-12] MEDS ORDERED: ALBUTEROL 0.083% 2.5 MG/3 ML NEBU INH ONE (07:20)
[2022-08-12] MEDS: ALBUTEROL 0.083% 2.5 MG/3 ML NEBU INH SCH ×2 (07:59→13:27)
[2022-08-12] MEDS: IPRATROPIUM 0.02% 0.5 MG/2.5 ML NEBU INH SCH ×2 (07:59→13:27)
[2022-08-12 08:00] VITALS: BP 135/84
[2022-08-12] MEDS: PANTOPRAZOLE 40 MG INJ VIAL IVP SCH (08:55)
[2022-08-12] MEDS ORDERED: METOPROLOL 25 MG TAB PO SCH (09:00)
--- NOTE | 2022-08-12 11:01 | NUR ---
RECEIVED ORDER FOR PT TO GO TO SNF FOR PHYSICAL THERAPY. SPOKE WITH SON KUSHAL AT BEDSIDE AND ASKED IF SNF FOR PT WAS AN OPTION FOR PATIENT. HE AGREED FOR SHORT TERM THEN PATIENT WILL RETURN HOME WITH SON KUSHAL. WITH THAT SAID FAXED ALL PAPERWORK TO [facility]. WILL FOLLOW UP WITH INSURANCE ANS SNF FACILITIES. Addendum: 08/12/22 at 1432 by XAVIER CLARKE CM FAXED [email or web address] AND [employer]. GOT A CALL FROM [facility] FROM [email or web address] LOCATED AT [address] [facility] [id number]. PATIENT WILL BE GOING TO ROOM 103A UNDER DR GARCES. TRANSPORTATION SET UP WITH SAJAN AT CALL THE CAR WITH A 1800 COST ESTIMATING ENGINEER TIME. NOT A GUARANTEED COST ESTIMATING ENGINEER DAY AND TIME WILL CONTACT NURSING STATION . CANCELED CALL THE CAR. TRANSPORTATION SET UP WITH YANY AT [facility] FOR A 1800 COST ESTIMATING ENGINEER TIME. CHARGE NURSE GASPER AND DAUGHTER IN LAW AND SON AWARE OF THE ABOVE INFORMATION. Addendum: 08/12/22 at 1445 by XAVIER CLARKE CM ACCEPTING DR IS NOT DEZ IT IS DR LINK. PLEASE CALL AND GIVE REPORT BEFORE TRANSPORT GET HERE .
--- NOTE | 2022-08-12 11:07 | NUR ---
USED WRAPPER STEMMER HAND KUSHAL, ID#[id number] TO SPEAK WITH SON KUSHAL.
[2022-08-12 12:00] VITALS: BP 131/85
[2022-08-12] MEDS ORDERED: RACEPINEPHRINE 2.25% 13.5 MG/0.5 ML NEBU INH SCH (13:30)
--- NOTE | 2022-08-12 13:46 | NUR ---
SWITCHED PT TO COOL AEROSOL FOR UPPER AIRWAY INFLAMMATION AND SLIGHT STRIDER NOTED. 28%, 8L. WILL CONTINUE TO MONITOR.
[2022-08-12] MEDS ORDERED: RACEPINEPHRINE 2.25% 13.5 MG/0.5 ML NEBU INH PRN (13:55)
[2022-08-12] MEDS ORDERED: PRON INH (14:09)
[2022-08-12 16:00] VITALS: BP 110/74
--- NOTE | 2022-08-12 20:27 | NUR ---
0800: RECEIVED PT FROM SYED GARCIA. PT RESTING IN BED EYES CLOSED. NO GUARDING OR GRIMACING. NO ACUTE DISTRESS NOTED AT THIS TIME. [email or web address].
--- NOTE | 2022-08-12 20:29 | NUR ---
1800: REPORT CALLED TO NASRA AT [facility]. [email or web address].
--- NOTE | 2022-08-12 20:30 | NUR ---
1810: SUBCLAVIAN LINE, VASQUEZ CATHETER, DISCONTINUED. 2L N/C APPLIED. DANIEL CARE PERFORMED. SON AT BEDSIDE. PT TOLERATED WELL. [email or web address].
--- NOTE | 2022-08-12 20:32 | NUR ---
1830 PT DISCHARGED WITH AMBULANCE VIA GURNEY. NO GUARDING OR GRIMACING. NO ACUTE DISTRESS NOTED AT THIS TIME. [email or web address].
== END 2022-08-12 18:37 ==
LOC: MED 02:49 → MIC 07:44 → MED 07:44 → MTU 07:44 → MIC 16:51 → MTU 08-11 14:50
PROVIDERS: ADMIT Family Medicine; ATTEND Family Medicine
PROC: 06L38CZ Occlusion of Esophageal Vein with Extraluminal Device, Via Natural or Artificial Opening Endoscopic (ICD-10-PCS; 2022-08-07)
PROC: 30233N1 Transfusion of Nonautologous Red Blood Cells into Peripheral Vein, Percutaneous Approach (ICD-10-PCS; 2022-08-07)
PROC: 0BH17EZ Insertion of Endotracheal Airway into Trachea, Via Natural or Artificial Opening (ICD-10-PCS; 2022-08-07)
PROC: 5A1945Z Respiratory Ventilation, 24-96 Consecutive Hours (ICD-10-PCS; principal; 2022-08-07 09:30)
PROC: 5A1935Z Respiratory Ventilation, Less than 24 Consecutive Hours (ICD-10-PCS; 2022-08-10)
DX: K74.60 Unspecified cirrhosis of liver (principal); J96.01 Acute respiratory failure with hypoxia; N17.0 Acute kidney failure with tubular necrosis; R57.1 Hypovolemic shock; D84.9 Immunodeficiency, unspecified; I85.11 Secondary esophageal varices with bleeding; E43 Unspecified severe protein-calorie malnutrition; B19.10 Unspecified viral hepatitis B without hepatic coma; D62 Acute posthemorrhagic anemia; K76.6 Portal hypertension; C22.8 Malignant neoplasm of liver, primary, unspecified as to type; K31.89 Other diseases of stomach and duodenum; C22.9 Malignant neoplasm of liver, not specified as primary or secondary; Z66 Do not resuscitate; J44.9 Chronic obstructive pulmonary disease, unspecified; B18.1 Chronic viral hepatitis B without delta-agent; Z20.822 Contact with and (suspected) exposure to COVID-19; Z86.11 Personal history of tuberculosis; Z85.05 Personal history of malignant neoplasm of liver; Z68.27 Body mass index [BMI] 27.0-27.9, adult
CPT/HCPCS: 31500; 36415; 36430; 36600; 71045; 76705; 80048; 80053; 80305; 81001; 82150; 82803; 83036; 83690; 83735; 83880; 84100; 84436; 84439; 84443; 84479; 85018; 85025; 85610; 85730; 86886; 86900; 86901; 86920; 87081; 92526; 93005; 94002; 94003; 94640; 96361; 96374; 96375; 97163-GP; 97530; 99291; C9113; J0696; J2250; J2354; J2704; J3010; J3490; J7030; J7060; J7613; J7644; P9016; Q0092; Q9967

== ENCOUNTER 2023-11-02 12:57 | Emergency (ER) | payer OTHER, MEDICAID ==
[~2023-11-02] VITALS: Ht 167.6 cm; Wt 65.8 kg
[~2023-11-02 12:57] MED LIST: OMEP40EC23 PO; PRON INH; TENO300T7 PO
[2023-11-02 13:07] VITALS: BP 150/101; PULSE 98; RESP 16; TEMP 98; O2SAT 98
[2023-11-02] MEDS: KETOROLAC 60 MG/2 ML VIAL IM ONE (14:00)
[2023-11-02] MEDS ORDERED: IBUP-2213 PO (14:03)
[2023-11-02] MEDS ORDERED: ONDA8TAB87 PO (14:03)
[2023-11-02 14:10] VITALS: BP 150/101; PULSE 98; RESP 16; TEMP 98; O2SAT 98
[2023-11-03] MEDS ORDERED: TENO25TA PO (00:47)
[2023-11-03] MEDS ORDERED: SPIR50TA PO (00:47)
[2023-11-03] MEDS ORDERED: FURO-572 PO (00:47)
== END 2023-11-02 14:10 | disposition home or self-care (01) ==
LOC: MED 12:57
DX: R10.13 Epigastric pain (principal); R11.2 Nausea with vomiting, unspecified; K21.9 Gastro-esophageal reflux disease without esophagitis; I10 Essential (primary) hypertension; Z85.05 Personal history of malignant neoplasm of liver
CPT/HCPCS: 96372; 99283; J1885

== ENCOUNTER 2023-11-02 21:28 | Inpatient (IN) | payer OTHER, MEDICAID ==
[~2023-11-02] VITALS: Ht 170.2 cm; Wt 65.8 kg
[~2023-11-02 21:28] MED LIST changes: +IBUP-2213 PO; +ONDA8TAB87 PO
[2023-11-02 21:35] VITALS: BP 105/71; PULSE 95; RESP 16; TEMP 97.3; O2SAT 99
[2023-11-02] MEDS: NACL 0.9% 500 ML IV ONE (22:39)
[2023-11-02] MEDS: PANTOPRAZOLE 40 MG INJ VIAL IVP ONE (22:41)
[2023-11-02 22:42] LABS: BASOPHILS % (AUTO) 0.3 % (0.0-2.0); EOSINOPHILS # (AUTO) 0.1 K/uL (0-0.4); EOSINOPHILS % (AUTO) 0.7 % (0.0-4.0); HEMATOCRIT 37.1 % (36-52); HEMOGLOBIN 12.2 g/dL (12.0-18.0); LYMPHOCYTES # (AUTO) 0.5 K/uL (2.0-11.5); LYMPHOCYTES % (AUTO) 4.3 % (20.5-51.1); MEAN CORPUSCULAR HEMOGLOBIN 26 pg (27-31); MEAN CORPUSCULAR HGB CONC 33 g/dL (33-37); MEAN CORPUSCULAR VOLUME 80.2 fL (80-94); MONOCYTES # (AUTO) 1.1 K/uL (0.8-1.0); MONOCYTES % (AUTO) 8.8 % (1.7-9.3); NEUTROPHILS # (AUTO) 10.5 K/uL (1.8-7.7); NEUTROPHILS % (AUTO) 85.9 % (42.2-75.2); PLATELET COUNT (AUTO) 176 K/uL (140-450); RED BLOOD CELL COUNT(AUTO) 4.63 MIL/uL (4.20-6.10); RED CELL DISTRIBUTION WIDTH 18.1 % (11.6-13.7); WHITE BLOOD COUNT (AUTO) 12.3 K/uL (4.8-10.8)
[2023-11-02 23:01] LABS: INR 1.09 (0.8-1.2); PROTHROMBIN TIME 11.4 secs (10.8-13.4)
[2023-11-02 23:06] LABS: ALANINE AMINOTRANSFERASE 17 U/L (12-78); ALBUMIN 2.2 g/dL (3.4-5.0); ALKALINE PHOSPHATASE 71 U/L (50-136); ASPARTATE AMINOTRANSFERASE 33 U/L (15-37); BILIRUBIN,DIRECT 0.4 mg/dL (0.0-0.3); LIPASE 48 U/L (16-77); TOTAL BILIRUBIN 1.3 mg/dL (0.0-1.0); TOTAL PROTEIN, SERUM 7.3 g/dL (6.4-8.2)
[2023-11-02 23:07] LABS: ANION GAP 15.8 (8-16); CALCIUM 8.5 mg/dL (8.5-10.1); CHLORIDE 99 mmol/L (98-107); CREATININE 2.2 mg/dL (0.6-1.3); GLUCOSE 120 mg/dL (74-106); POTASSIUM 4.8 mmol/L (3.5-5.1); SODIUM SERUM 131 mmol/L (136-145); UREA NITROGEN, BLOOD 40 mg/dL (7-18)
[2023-11-03] VITALS (8 sets, daily range): BP systolic 95–118; BP diastolic 59–65; PULSE 66–82; RESP 18; TEMP 96.6–98.8; O2SAT 97–100
[2023-11-03] MEDS: ALBUMIN HUMAN 25% 100 ML IV ONE (00:44)
[2023-11-03] MEDS: ALBUMIN HUMAN 5 % 250 ML IV ONE (00:45)
[2023-11-03] MEDS ORDERED: TENO25TA PO (00:47)
[2023-11-03] MEDS ORDERED: FURO-572 PO (00:47)
[2023-11-03] MEDS ORDERED: SPIR50TA PO (00:47)
[2023-11-03] MEDS ORDERED: NACL 0.9% 1,000 ML IV SCH (02:05)
[2023-11-03] MEDS ORDERED: MORPHINE SULFATE 4 MG/ML SYR IVP PRN (02:05)
[2023-11-03] MEDS ORDERED: ACETAMINOPHEN 325 MG TAB PO PRN (02:05)
[2023-11-03] MEDS ORDERED: HYDROcodone/APAP 5/325 MG 1 TAB TAB PO PRN (02:05)
[2023-11-03] MEDS: SPIRONOLACTONE 50 MG TAB PO SCH (09:00)
[2023-11-03] MEDS: FUROSEMIDE 20 MG TAB PO SCH (09:00)
[2023-11-03] MEDS: PANTOPRAZOLE 40 MG INJ VIAL IVP SCH (09:57)
[2023-11-03] MEDS: DEXT 5% /NACL 0.9% 1,000 ML IV SCH (15:12)
[2023-11-03] MEDS: ALBUMIN HUMAN 25% 100 ML IV SCH (16:08)
[2023-11-03] MEDS: MIDODRINE 5 MG TAB PO SCH (18:02)
[2023-11-03] MEDS: OCTREOTIDE ACETATE 1.25 MG in NACL 0.9% 250 ML IV SCH (18:30)
[2023-11-03] MEDS ORDERED: COMMUNICATION ORDER MC PRN (20:00)
[2023-11-04] VITALS: BP 113/63; PULSE 68; PULSE 69; RESP 18; TEMP 98.7; O2SAT 96
[2023-11-04 04:00] VITALS: BP 97/61; PULSE 63; PULSE 64; RESP 18; TEMP 97.6; O2SAT 98
[2023-11-04 06:21] LABS: BASOPHILS % (AUTO) 0.6 % (0.0-2.0); EOSINOPHILS # (AUTO) 0.2 K/uL (0-0.4); HEMATOCRIT 30.1 % (36-52); HEMOGLOBIN 10.3 g/dL (12.0-18.0); LYMPHOCYTES # (AUTO) 0.2 K/uL (2.0-11.5); LYMPHOCYTES % (AUTO) 5.8 % (20.5-51.1); MEAN CORPUSCULAR HEMOGLOBIN 27 pg (27-31); MEAN CORPUSCULAR HGB CONC 34 g/dL (33-37); MEAN CORPUSCULAR VOLUME 79.3 fL (80-94); MONOCYTES # (AUTO) 0.6 K/uL (0.8-1.0); MONOCYTES % (AUTO) 13.5 % (1.7-9.3); NEUTROPHILS # (AUTO) 3.2 K/uL (1.8-7.7); NEUTROPHILS % (AUTO) 76.1 % (42.2-75.2); PLATELET COUNT (AUTO) 104 K/uL (140-450)
[2023-11-04 06:23] LABS: WHITE BLOOD COUNT (AUTO) 4.2 K/uL (4.8-10.8)
[2023-11-04 06:37] LABS: ALANINE AMINOTRANSFERASE 13 U/L (12-78); ALBUMIN 2.3 g/dL (3.4-5.0); ALKALINE PHOSPHATASE 53 U/L (50-136); ANION GAP 12.2 (8-16); ASPARTATE AMINOTRANSFERASE 19 U/L (15-37); CALCIUM 7.6 mg/dL (8.5-10.1); CHLORIDE 104 mmol/L (98-107); CREATININE 1.9 mg/dL (0.6-1.3); GLUCOSE 119 mg/dL (74-106); POTASSIUM 4.2 mmol/L (3.5-5.1); SODIUM SERUM 133 mmol/L (136-145); TOTAL BILIRUBIN 0.6 mg/dL (0.0-1.0); TOTAL PROTEIN, SERUM 6.3 g/dL (6.4-8.2); UREA NITROGEN, BLOOD 45 mg/dL (7-18)
[2023-11-04 08:00] VITALS: BP 113/64; PULSE 72; PULSE 94; RESP 17; RESP 18; TEMP 97.9; O2SAT 97
[2023-11-04 12:00] VITALS: BP 129/75; PULSE 68; RESP 18; TEMP 98; O2SAT 99
[2023-11-04] MEDS ORDERED: PRO5 PO (14:59)
[2023-11-04 16:00] VITALS: BP 111/68; PULSE 71; RESP 20; TEMP 98.5; O2SAT 99
[2023-11-04 17:16] VITALS: BP 111/68; PULSE 71; RESP 20; TEMP 98.5
== END 2023-11-04 18:00 | disposition home or self-care (01) | DRG 377 ==
LOC: MED 21:28 → MMU 11-03 02:08
PROVIDERS: ADMIT Student in an Organized Health Care Education/Training Program; ATTEND Student in an Organized Health Care Education/Training Program
DX: K92.1 Melena (principal); N17.0 Acute kidney failure with tubular necrosis; R65.11 Systemic inflammatory response syndrome (SIRS) of non-infectious origin with acute organ dysfunction; B18.1 Chronic viral hepatitis B without delta-agent; C22.0 Liver cell carcinoma; R18.8 Other ascites; E44.1 Mild protein-calorie malnutrition; I95.89 Other hypotension; K74.60 Unspecified cirrhosis of liver; K21.9 Gastro-esophageal reflux disease without esophagitis; K42.9 Umbilical hernia without obstruction or gangrene; N18.31 Chronic kidney disease, stage 3a; Z79.899 Other long term (current) drug therapy; Z68.22 Body mass index [BMI] 22.0-22.9, adult
CPT/HCPCS: 36415; 71045; 80048; 80053; 80076; 82272; 83690; 84484; 85025; 85610; 86886; 86900; 86901; 87081; 93005; 96374; 99291; C9113; J0696; J2354; J7030; J7060; P9041; P9046; Q0092